=== PATIENT | female | born 1980 | race Two or more races ===

== ENCOUNTER 2017-09-24 03:46 | Emergency (ER) | payer MEDICAID, OTHER ==
[~2017-09-24] VITALS: Ht 157.5 cm; Wt 72.6 kg
[2017-09-24 04:13] VITALS: BP 113/67
== END 2017-09-24 07:09 | disposition home or self-care (01) ==
LOC: ER 03:51
DX: S70.01XA Contusion of right hip, initial encounter (principal); F11.10 Opioid abuse, uncomplicated; F15.10 Other stimulant abuse, uncomplicated; F17.210 Nicotine dependence, cigarettes, uncomplicated; W18.2XXA Fall in (into) shower or empty bathtub, initial encounter; Y93.89 Activity, other specified; Y92.091 Bathroom in other non-institutional residence as the place of occurrence of the external cause; Y99.8 Other external cause status
CPT/HCPCS: 73502

== ENCOUNTER 2018-08-30 08:01 | Emergency (ER) | payer MEDICAID ==
[~2018-08-30] VITALS: Ht 157.5 cm; Wt 81.6 kg
[2018-08-30 08:05] VITALS: BP 107/77
== END 2018-08-30 09:29 | disposition home or self-care (01) ==
LOC: ER 08:02
DX: S63.91XA Sprain of unspecified part of right wrist and hand, initial encounter (principal); F17.210 Nicotine dependence, cigarettes, uncomplicated; W22.8XXA Striking against or struck by other objects, initial encounter; Y93.89 Activity, other specified; Y99.8 Other external cause status; Y92.89 Other specified places as the place of occurrence of the external cause
CPT/HCPCS: 73130